=== PATIENT | male | born 1965 | race Caucasian/White ===

== ENCOUNTER 2019-03-15 01:58 | Emergency (ER) | payer MEDICARE, MEDICAID ==
[2019-03-15] MEDS ORDERED: methylPREDNISolone Sodium Succinate 125 MG/2 ML SDV IM ONE (02:12)
[2019-03-15] MEDS ORDERED: Ketorolac 30 MG/ML SDV IM ONE (02:17)
--- NOTE | 2019-03-15 02:18 | EDM.PDOC ---
ED HPI GENERAL MEDICAL PROBLEM - General Chief Complaint: Lower Extremity Injury/Pain Stated Complaint: Pain in lower left leg; gout Time Seen by Provider: 03/15/19 02:00 Source of Information: Reports: Patient History Limitations: Reports: No Limitations - History of Present Illness INITIAL COMMENTS - FREE TEXT/NARRATIVE: He started having pain in his left lower leg today. It is very painful and has become more swollen. His Dad had gout and that is what he assumes this is. He also has a cold with a cough. The leg is very painful to even touch it. The right lower leg is hurting some also and he is concerned this is spreading to that leg now. Onset: Today Onset Date: 03/15/19 Duration: Getting Worse Location: Reports: Lower Extremity, Left Quality: Reports: Burning, Sharp Severity: Severe Improves with: Reports: None Worsens with: Reports: Movement Associated Symptoms: Reports: No Other Symptoms Left Lower Leg Pain Score (Numeric/FACES): 10 Right Lower Leg Pain Score (Numeric/FACES): 5 - Related Data Allergies Allergy/AdvReac Type Severity Reaction Status Date / Time Sulfa (Sulfonamide Allergy Rash Verified 03/15/19 02:00 Antibiotics) Home Meds: Home Meds ARIPiprazole [Aripiprazole] 2 mg PO DAILY 03/15/19 [History] Doxepin [SINEquan] 25 mg PO BEDTIME 03/15/19 [History] Gabapentin [Neurontin] 300 mg PO DAILY 03/15/19 [History] Methylphenidate HCl [Methylphenidate ER] 20 mg PO DAILY 03/15/19 [History] Mirtazapine 15 mg PO BEDTIME 03/15/19 [History] clonazePAM [Klonopin] 1 mg PO Q4H PRN 03/15/19 [History] Social & Family History - Tobacco Use Smoking Status *Q: Current Every Day Smoker Review of Systems - Review of Systems Review Of Systems: See Below Constitutional: Reports: Chills, Fever Eyes: Reports: No Symptoms Ears: Reports: No Symptoms Nose: Reports: Congestion Mouth/Throat: Reports: No Symptoms Respiratory: Reports: Wheezing, Cough, Sputum Cardiovascular: Reports: No Symptoms GI/Abdominal: Reports: No Symptoms Genitourinary: Reports: No Symptoms Musculoskeletal: Reports: Leg Pain, Other (leg swelling) Skin: Reports: Rash Neurological: Reports: No Symptoms Psychiatric: Reports: No Symptoms ED EXAM, GENERAL - Physical Exam Exam: See Below Free Text/Narrative:: Male sitting in wheelchair who appears anxious. He is very talkative. He c/o pain in left lower leg with swelling; there is some redness and skin rash/ breakdown left lower leg. He has exquisite pain to touch of the lower leg especially the ankle. He has no definite areas of erythema or palpable cords posterior calf bilaterally; pulse is faintly palpable but he does c/o pain to this light touch also. Pain with bending his ankle. Exam Limited By: Other General Appearance: Alert, WD/WN, Anxious, Moderate Distress Eye Exam: Bilateral Eye: PERRL Ears: Normal External Exam, Normal Canal, Hearing Grossly Normal, Normal TMs Nose: Normal Inspection Throat/Mouth: Normal Inspection, Normal Oropharynx, No Airway Compromise Head: Atraumatic, Normocephalic Neck: Normal Inspection, Supple Respiratory/Chest: Decreased Breath Sounds, Wheezing Cardiovascular: Regular Rate, Rhythm Peripheral Pulses: 1+: Dorsalis Pedis (L), Dorsalis Pedis (R) GI/Abdominal: No Distention (Male) Exam: Deferred Rectal (Males) Exam: Deferred Back Exam: Normal Inspection Extremities: Pedal Edema, Joint Swelling, Leg Pain, Redness (left lower leg) Neurological: Alert, Oriented Psychiatric: Anxious Skin Exam: Warm, Dry, Rash Lymphatic: No Adenopathy Course - Vital Signs Last Recorded V/S: Last Vital Signs Temp 98.4 F 03/15/19 02:04 Pulse 88 03/15/19 02:04 Resp 16 03/15/19 02:04 BP 132/91 H 03/15/19 02:04 Pulse Ox 100 03/15/19 02:04 - Orders/Labs/Meds Orders: Active Orders 24 hr Category Date Time Status RT Aerosol Therapy [RC] ASDIRECTED Care 03/15/19 02:26 Active Meds: Medications Discontinued Medications Generic Name Dose Route Start Last Admin Trade Name Leonelq PRN Reason Stop Dose Admin Albuterol/Ipratropium 3 ml 03/15/19 02:26 03/15/19 02:35 Duoneb 3.0-0.5 Mg/3 Ml NEB 03/15/19 02:27 3 ml ONETIME ONE Administration Ketorolac Tromethamine 30 mg 03/15/19 02:17 03/15/19 02:27 Toradol IM 03/15/19 02:18 30 mg ONETIME ONE Administration Methylprednisolone Sodium Succinate 125 mg 03/15/19 02:12 03/15/19 02:26 Solu-Medrol IM 03/15/19 02:13 125 mg ONETIME ONE Administration Departure - Departure Time of Disposition: 02:30 Disposition: Home, Self-Care 01 Condition: Fair Clinical Impression: Gout - Discharge Information *PRESCRIPTION DRUG MONITORING PROGRAM REVIEWED*: Not Applicable *COPY OF PRESCRIPTION DRUG MONITORING REPORT IN PATIENT ROSEMARIE: Not Applicable Instructions: Coping with Quitting Smoking, Gout, [id number] Forms: ED Department Discharge Additional Instructions: Elevate your leg above your heart Take the medication you are prescribed. See your PCP if pain is not improving Stopping smoking is very important for your health - My Orders Last 24 Hours: My Active Orders 03/15/19 02:26 RT Aerosol Therapy [RC] ASDIRECTED - Assessment/Plan Last 24 Hours: My Active Orders 03/15/19 02:26 RT Aerosol Therapy [RC] ASDIRECTED
[2019-03-15] MEDS ORDERED: Albuterol/Ipratropium 3.0-0.5 MG/3 ML Neb Soln NEB ONE (02:26)
== END 2019-03-15 02:50 | disposition home or self-care (01) ==
LOC: VM.ED 01:58
DX: M10.9 Gout, unspecified (principal); M79.661 Pain in right lower leg; M79.662 Pain in left lower leg; R06.2 Wheezing; R60.0 Localized edema; R21 Rash and other nonspecific skin eruption; F17.200 Nicotine dependence, unspecified, uncomplicated; Z88.2 Allergy status to sulfonamides
CPT/HCPCS: 94640; 96374; 99283-25; 99283-GF; J1885; J2930; J7620-GY